=== PATIENT | female | born 2000 | race Caucasian/White ===

== ENCOUNTER 2024-03-29 20:30 | Emergency (ER) | payer MEDICAID ==
[~2024-03-29] VITALS: Ht 152.4 cm; Wt 77.0 kg
[2024-03-29 20:49] VITALS: O2SAT 100
[2024-03-29 21:35] LABS: CLARITY URINE CLEAR (CLEAR); COLOR URINE YELLOW (YELLOW); GLUCOSE URINE NEGATIVE (NEGATIVE); KETONES URINE NEGATIVE (NEGATIVE); LEUKOCYTE ESTERASE URINE NEGATIVE (NEGATIVE); NITRITE URINE NEGATIVE (NEGATIVE); OCCULT BLOOD URINE 1+ (NEGATIVE); PH URINE 5.5 (4.5-8.0); PROTEIN URINE NEGATIVE (NEGATIVE); SPECIFIC GRAVITY URINE 1.026 (1.005-1.030); UROBILINOGEN URINE 0.2 E.U./dL (0.2-1.0)
[2024-03-29 21:42] LABS: BASOPHILS % 0.5 % (0.0-2.0); EOSINOPHILS % 1.2 % (0.0-5.0); HEMATOCRIT. 42.7 % (36.0-48.0); HEMOGLOBIN. 14.4 g/dL (12.0-16.0); LYMPHOCYTES % 35.8 % (20.0-50.0); MEAN CORPUSCULAR HEMOGLOBIN 31.3 pg (28.0-32.0); MEAN CORPUSCULAR HGB CONC 33.8 g/dL (31.0-37.0); MEAN CORPUSCULAR VOLUME 92.9 fL (81.0-99.0); MEAN PLATELET VOLUME 9.6 fl (7.4-10.4); NEUTROPHILS % 54.5 % (40.0-76.0); PLATELET 244 x1000/uL (130-400); RED CELL DISTRIBUTION WIDTH 14.1 % (11.6-14.6); WHITE BLOOD COUNT 11.1 x1000/uL (4.5-11.0)
[2024-03-29 21:52] LABS: BACTERIA URINE 1+; SQUAMOUS EPITHELIAL CELL URINE 2+ /lpf (RARE/1+); WBC URINE 0-2 /hpf (0-2)
[2024-03-29 21:58] LABS: CHLORIDE 108 mEq/L (98-107); POTASSIUM 3.6 mEq/L (3.5-5.1); SODIUM 141 mEq/L (136-145)
[2024-03-29 21:59] LABS: CALCIUM 10.1 mg/dL (8.7-10.4); CARBON DIOXIDE 26 mEq/L (21-32)
[2024-03-29 22:04] LABS: CREATININE 0.7 mg/dL (0.6-1.0); GLUCOSE 113 mg/dL (70-105); UREA NITROGEN BLOOD 11 mg/dL (9-23)
[2024-03-29 22:06] LABS: ALANINE AMINOTRANSFERASE 20 IU/L (10-49); ALBUMIN 4.9 g/dL (3.2-4.8); ASPARTATE AMINOTRANSFERASE 21 IU/L (<34)
[2024-03-29 22:07] LABS: BILIRUBIN TOTAL 0.3 mg/dL (0.1-1.0); PROTEIN TOTAL 7.7 g/dL (6.0-8.3)
[2024-03-29 22:17] LABS: BILIRUBIN DIRECT < 0.1 mg/dL (<=3.0)
[2024-03-29] MEDS ORDERED: TOPUD MT (23:54)
[2024-03-30] MEDS: ACETAMINOPHEN 500MG TABLET PO ONE (00:05)
[2024-03-30 00:14] VITALS: BP 127/76; PULSE 85; RESP 16; TEMP 36.89184; O2SAT 99
== END 2024-03-30 00:15 | disposition home or self-care (01) ==
LOC: EDSEX 20:30 → ER 20:30
DX: B34.9 Viral infection, unspecified (principal); R10.11 Right upper quadrant pain; R05.9 Cough, unspecified
CPT/HCPCS: 36415; 76705; 80048; 80076; 81003; 81025; 85025; 99284

== ENCOUNTER 2025-01-26 20:04 | Emergency (ER) | payer MEDICAID, OTHER ==
[~2025-01-26] VITALS: Ht 157.5 cm; Wt 86.0 kg
[~2025-01-26 20:04] MED LIST: TOPUD MT
[2025-01-26 20:48] VITALS: O2SAT 96
[2025-01-26 20:51] VITALS: BP 131/89; PULSE 89; RESP 18; TEMP 36.8; O2SAT 96
[2025-01-26 21:36] LABS: BASOPHILS % 1.0 % (0.0-2.0); EOSINOPHILS % 0.8 % (0.0-5.0); HEMATOCRIT. 41.3 % (36.0-48.0); HEMOGLOBIN. 13.9 g/dL (12.0-16.0); LYMPHOCYTES % 32.0 % (20.0-50.0); MEAN PLATELET VOLUME 9.5 fl (7.4-10.4); MONOCYTES % 8.5 % (2.0-8.0); NEUTROPHILS % 57.7 % (40.0-76.0); PLATELET 262 x1000/uL (130-400); RED BLOOD CELL COUNT 4.54 mill/uL (4.2-5.4); RED CELL DISTRIBUTION WIDTH 14.1 % (11.6-14.6)
[2025-01-26 21:53] LABS: TROPONIN I HIGH SENSITIVITY < 4 ng/L (3.0-34)
[2025-01-26 22:25] LABS: CLARITY URINE CLEAR (CLEAR); GLUCOSE URINE NEGATIVE (NEGATIVE); KETONES URINE 1+ (NEGATIVE); LEUKOCYTE ESTERASE URINE 1+ (NEGATIVE); NITRITE URINE NEGATIVE (NEGATIVE); OCCULT BLOOD URINE TRACE (NEGATIVE); PH URINE 6.5 (4.5-8.0); PROTEIN URINE NEGATIVE (NEGATIVE); SPECIFIC GRAVITY URINE 1.010 (1.005-1.030); UROBILINOGEN URINE 0.2 E.U./dL (0.2-1.0)
[2025-01-26 22:37] LABS: COLOR URINE STRAW (YELLOW)
[2025-01-26 22:39] LABS: RBC URINE NONE SEEN /hpf (0-2)
[2025-01-26 22:40] LABS: BACTERIA URINE TRACE; SQUAMOUS EPITHELIAL CELL URINE 1+ /lpf (RARE/1+)
[2025-01-27 00:27] LABS: CREATININE 0.6 mg/dL (0.6-1.0); UREA NITROGEN BLOOD 10 mg/dL (9-23)
[2025-01-27] MEDS ORDERED: FAMO-135 MT (00:41)
[2025-01-27] MEDS: FAMOTIDINE 20MG TABLET PO ONE (00:46)
== END 2025-01-27 00:57 | disposition home or self-care (01) ==
LOC: ER 20:04
DX: M79.89 Other specified soft tissue disorders (principal); R07.9 Chest pain, unspecified; Z91.013 Allergy to seafood
CPT/HCPCS: 36415; 71045; 80048; 81003; 81025; 84484; 85025; 93005; 99285